=== PATIENT | female | born 1975 | race Caucasian/White ===

== ENCOUNTER 2022-12-12 17:12 | Inpatient (IN) | payer OTHER ==
[2022-12-12 17:36] VITALS: BMI 38.6
[2022-12-12] MEDS ORDERED: MAG HYDROX/AL HYDROX/SIMETH 30 ML UNIT-DOSE CUP PO PRN (18:23)
[2022-12-12] MEDS ORDERED: LOPERAMIDE HCL 2 MG CAPSULE PO PRN (18:23)
[2022-12-12] MEDS ORDERED: MAGNESIUM HYDROX 2400MG/30ML ORAL SUSPENSION 30 ML CUP PO PRN (18:23)
[2022-12-12] MEDS ORDERED: IBUPROFEN 400 MG TABLET (FP) PO PRN (18:23)
[2022-12-12] MEDS ORDERED: POLYETHYLENE GLYCOL (HEALTHYLAX) 3350 17 GM PACKET PO PRN (18:23)
[2022-12-12] MEDS ORDERED: methaDONE HCL 10 MG TABLET (FOR DETOX USE ONLY) PO ONE (18:23)
[2022-12-12] MEDS ORDERED: BISMUTH SUBSALICYLATE 524 MG/30 ML PO PRN (18:23)
[2022-12-12] MEDS ORDERED: BENZOCAINE/MENTHOL (CHLORASEPTIC ) LOZENGE MM PRN (18:23)
[2022-12-12] MEDS ORDERED: DICYCLOMINE HCL 10 MG CAPSULE PO PRN (18:23)
[2022-12-12] MEDS ORDERED: NALOXONE HCL (KLOXXADO) 8 MG SPRAY NS PRN (18:23)
[2022-12-12] MEDS ORDERED: ACETAMINOPHEN 325 MG TABLET (FP) PO PRN ×2 (18:23)
[2022-12-12] MEDS ORDERED: diazePAM 5 MG TABLET ONE (18:58)
[2022-12-12] MEDS ORDERED: methaDONE HCL 10 MG TABLET (FOR DETOX USE ONLY) ONE (18:59)
[2022-12-12] MEDS: diazePAM 5 MG TABLET PO PRN ×2 (19:07→22:26)
[2022-12-12] MEDS: THIAMINE HCL 100 MG TABLET (FP) PO SCH (22:25)
[2022-12-12] MEDS: MELATONIN 5 MG TABLETS PO SCH (22:26)
[2022-12-12] MEDS: NICOTINE 10 MG CARTRIDGE (INHALER) IH PRN (22:27)
[2022-12-12] MEDS: METHOCARBAMOL 500 MG TABLET PO PRN (22:27)
[2022-12-12] MEDS: CEPHALEXIN MONOHYDRATE 500 MG CAPSULE (UD) PO SCH (23:27)
[2022-12-13] MEDS: CEPHALEXIN MONOHYDRATE 500 MG CAPSULE (UD) PO SCH ×4 (05:53→23:50)
[2022-12-13] MEDS: diazePAM 5 MG TABLET PO PRN ×4 (05:54→17:40)
[2022-12-13] MEDS: IBUPROFEN 600 MG TABLET (FP) PO PRN (06:47)
[2022-12-13] MEDS: NICOTINE 10 MG CARTRIDGE (INHALER) IH PRN ×2 (06:48→17:38)
[2022-12-13] MEDS: METHOCARBAMOL 500 MG TABLET PO PRN (09:43)
[2022-12-13] MEDS: PRENATAL VITAMINS W/ FOLIC ACID TABLET (FP) PO SCH (09:43)
[2022-12-13] MEDS: FLUoxetine HCL 20 MG CAPSULE PO SCH (11:51)
[2022-12-13 12:02] LABS: CALCIUM 9.6 mg/dL (8.5-10.1); HEMATOCRIT 38.9 % (32.4-45.2); HEMOGLOBIN 12.5 GM/dL (10.7-15.3); MCH 25.4 pg (25.7-33.7); MCHC 32.1 g/dl (32.0-36.0); MEAN CELL VOLUME 79.3 fl (80-96); MEAN PLT VOLUME 7.5 fl (7.5-11.1); PLATELET COUNT 308 10^3/uL (134-434); RBC 4.91 M/mm3 (3.60-5.2); RDW 16.6 % (11.6-15.6); WHITE BLOOD COUNT 8.8 K/mm3 (4.0-10.0)
[2022-12-13 12:03] LABS: ALBUMIN 3.7 g/dl (3.4-5.0); BLOOD UREA NITROGEN 7.5 mg/dL (7-18)
[2022-12-13 12:06] LABS: CREATININE 0.9 mg/dL (0.55-1.3)
[2022-12-13 12:07] LABS: BILIRUBIN,TOTAL 0.3 mg/dL (0.2-1); TOT PROT 7.8 g/dl (6.4-8.2)
[2022-12-13] MEDS: LITHIUM CARBONATE 300 MG CAPSULE PO SCH ×2 (13:03→21:03)
[2022-12-13] MEDS: QUEtiapine FUMARATE 50 MG TABLET PO SCH (21:03)
[2022-12-13] MEDS: OLANZapine 10 MG TABLET PO SCH (21:03)
[2022-12-13] MEDS: THIAMINE HCL 100 MG TABLET (FP) PO SCH (21:04)
[2022-12-13] MEDS: MELATONIN 5 MG TABLETS PO SCH (21:04)
[2022-12-14] MEDS: CEPHALEXIN MONOHYDRATE 500 MG CAPSULE (UD) PO SCH ×4 (05:42→23:04)
[2022-12-14] MEDS: LITHIUM CARBONATE 300 MG CAPSULE PO SCH ×3 (05:42→22:03)
[2022-12-14] MEDS ORDERED: methaDONE HCL 10 MG TABLET (FOR DETOX USE ONLY) PO ONE (10:00)
[2022-12-14] MEDS: FLUoxetine HCL 20 MG CAPSULE PO SCH (10:06)
[2022-12-14] MEDS: METHOCARBAMOL 500 MG TABLET PO PRN ×2 (10:06→17:46)
[2022-12-14] MEDS: PRENATAL VITAMINS W/ FOLIC ACID TABLET (FP) PO SCH (10:06)
[2022-12-14] MEDS: diazePAM 5 MG TABLET PO PRN ×3 (10:10→23:04)
[2022-12-14] MEDS: NICOTINE 10 MG CARTRIDGE (INHALER) IH PRN (19:24)
[2022-12-14] MEDS: OLANZapine 10 MG TABLET PO SCH (22:03)
[2022-12-14] MEDS: THIAMINE HCL 100 MG TABLET (FP) PO SCH (22:03)
[2022-12-14] MEDS: QUEtiapine FUMARATE 50 MG TABLET PO SCH (22:03)
[2022-12-14] MEDS: MELATONIN 5 MG TABLETS PO SCH (22:04)
[2022-12-15] MEDS: LITHIUM CARBONATE 300 MG CAPSULE PO SCH ×3 (05:29→22:19)
[2022-12-15] MEDS: CEPHALEXIN MONOHYDRATE 500 MG CAPSULE (UD) PO SCH ×4 (05:29→23:05)
[2022-12-15] MEDS: diazePAM 5 MG TABLET PO PRN ×3 (05:30→17:38)
[2022-12-15] MEDS: METHOCARBAMOL 500 MG TABLET PO PRN ×2 (08:42→23:08)
[2022-12-15] MEDS: PRENATAL VITAMINS W/ FOLIC ACID TABLET (FP) PO SCH (10:07)
[2022-12-15] MEDS: FLUoxetine HCL 20 MG CAPSULE PO SCH (10:07)
[2022-12-15] MEDS ORDERED: BUPRENORPHINE HCL 75 MCG FILM BC ONE (10:54)
[2022-12-15] MEDS: amLODIPine BESYLATE 10 MG TABLET (FP) PO SCH (10:56)
[2022-12-15] MEDS: IBUPROFEN 600 MG TABLET (FP) PO PRN (12:25)
[2022-12-15] MEDS: NICOTINE 10 MG CARTRIDGE (INHALER) IH PRN ×2 (12:30→17:40)
[2022-12-15] MEDS ORDERED: BUPRENORPHINE HCL 75 MCG FILM BC SCH (22:00)
[2022-12-15] MEDS: OLANZapine 10 MG TABLET PO SCH (22:11)
[2022-12-15] MEDS: THIAMINE HCL 100 MG TABLET (FP) PO SCH (22:11)
[2022-12-15] MEDS: QUEtiapine FUMARATE 50 MG TABLET PO SCH (22:11)
[2022-12-15] MEDS: MELATONIN 5 MG TABLETS PO SCH (22:17)
[2022-12-16] MEDS: CEPHALEXIN MONOHYDRATE 500 MG CAPSULE (UD) PO SCH ×4 (05:59→22:59)
[2022-12-16] MEDS: LITHIUM CARBONATE 300 MG CAPSULE PO SCH ×3 (05:59→22:18)
[2022-12-16] MEDS ORDERED: methaDONE HCL 10 MG TABLET (FOR DETOX USE ONLY) PO ONE (10:00)
[2022-12-16] MEDS: METHOCARBAMOL 500 MG TABLET PO PRN ×3 (10:13→23:02)
[2022-12-16] MEDS: PRENATAL VITAMINS W/ FOLIC ACID TABLET (FP) PO SCH (10:13)
[2022-12-16] MEDS: BUPRENORPHINE HCL 450 MCG FILM BC SCH ×2 (10:13→22:19)
[2022-12-16] MEDS: FLUoxetine HCL 20 MG CAPSULE PO SCH (10:13)
[2022-12-16] MEDS: amLODIPine BESYLATE 10 MG TABLET (FP) PO SCH (10:13)
[2022-12-16] MEDS: NICOTINE 10 MG CARTRIDGE (INHALER) IH PRN ×2 (10:17→22:59)
[2022-12-16] MEDS ORDERED: diazePAM 5 MG TABLET PO ONE (10:48)
[2022-12-16] MEDS ORDERED: NICOTINE POLACRILEX 4 MG GUM BUC PRN (13:45)
[2022-12-16] MEDS: MELATONIN 5 MG TABLETS PO SCH (22:17)
[2022-12-16] MEDS: THIAMINE HCL 100 MG TABLET (FP) PO SCH (22:17)
[2022-12-16] MEDS: OLANZapine 10 MG TABLET PO SCH (22:17)
[2022-12-16] MEDS: QUEtiapine FUMARATE 50 MG TABLET PO SCH (22:17)
[2022-12-17] MEDS: CEPHALEXIN MONOHYDRATE 500 MG CAPSULE (UD) PO SCH ×3 (05:19→17:45)
[2022-12-17] MEDS: LITHIUM CARBONATE 300 MG CAPSULE PO SCH ×3 (05:19→21:41)
[2022-12-17] MEDS ORDERED: BUPRENORPHINE/NALOXONE 4 MG/1 MG FILM PACKET SL SCH (06:00)
[2022-12-17] MEDS ORDERED: BUPRENORPHINE/NALOXONE 4 MG/1 MG FILM PACKET SL ONE ×2 (09:15→18:00)
[2022-12-17] MEDS: PRENATAL VITAMINS W/ FOLIC ACID TABLET (FP) PO SCH (09:37)
[2022-12-17] MEDS: amLODIPine BESYLATE 10 MG TABLET (FP) PO SCH (09:38)
[2022-12-17] MEDS: METHOCARBAMOL 500 MG TABLET PO PRN ×2 (09:38→17:45)
[2022-12-17] MEDS: FLUoxetine HCL 20 MG CAPSULE PO SCH (09:38)
[2022-12-17] MEDS ORDERED: diazePAM 5 MG TABLET PO ONE (11:35)
[2022-12-17] MEDS ORDERED: ONDANSETRON *ODT* 4 MG TABLET SL PRN (11:48)
[2022-12-17] MEDS ORDERED: TRIMETHOBENZAMIDE HCL 200MG/2ML INJ IM PRN (11:48)
[2022-12-17] MEDS: cloNIDine HCL 0.1 MG TABLET PO PRN ×2 (12:37→17:45)
[2022-12-17 12:59] VITALS: RESP 18
[2022-12-17] MEDS: IBUPROFEN 600 MG TABLET (FP) PO PRN (13:40)
[2022-12-17] MEDS: hydrOXYzine PAMOATE 25 MG CAPSULE (FP) PO PRN (19:58)
[2022-12-17] MEDS: QUEtiapine FUMARATE 50 MG TABLET PO SCH (21:39)
[2022-12-17] MEDS: MELATONIN 5 MG TABLETS PO SCH (21:39)
[2022-12-17] MEDS: OLANZapine 10 MG TABLET PO SCH (21:40)
[2022-12-17] MEDS: THIAMINE HCL 100 MG TABLET (FP) PO SCH (21:41)
[2022-12-18] MEDS: CEPHALEXIN MONOHYDRATE 500 MG CAPSULE (UD) PO SCH ×3 (00:26→11:40)
[2022-12-18] MEDS: cloNIDine HCL 0.1 MG TABLET PO PRN (05:32)
[2022-12-18] MEDS: LITHIUM CARBONATE 300 MG CAPSULE PO SCH (05:32)
[2022-12-18] MEDS: IBUPROFEN 600 MG TABLET (FP) PO PRN (06:16)
[2022-12-18] MEDS ORDERED: BUPRENORPHINE/NALOXONE 8 MG/2 MG FILM PACKET SL ONE (06:24)
[2022-12-18 09:40] VITALS: BP 131/72; PULSE 73; TEMP 97.5
[2022-12-18] MEDS: FLUoxetine HCL 20 MG CAPSULE PO SCH (10:05)
[2022-12-18] MEDS: amLODIPine BESYLATE 10 MG TABLET (FP) PO SCH (10:05)
[2022-12-18] MEDS: METHOCARBAMOL 500 MG TABLET PO PRN (10:05)
[2022-12-18] MEDS: hydrOXYzine PAMOATE 25 MG CAPSULE (FP) PO PRN (10:05)
[2022-12-18] MEDS: PRENATAL VITAMINS W/ FOLIC ACID TABLET (FP) PO SCH (10:05)
[2022-12-18] MEDS: NICOTINE 10 MG CARTRIDGE (INHALER) IH PRN (10:35)
== END 2022-12-18 12:16 | disposition other institution (70) | DRG 773 ==
LOC: YASAS 17:12 → Y6N 18:47
PROVIDERS: ADMIT Allergy & Immunology; ATTEND Family Medicine
PROC: HZ2ZZZZ Detoxification Services for Substance Abuse Treatment (ICD-10-PCS; principal; 2022-12-12)
DX: F11.23 Opioid dependence with withdrawal (principal); F17.210 Nicotine dependence, cigarettes, uncomplicated; F25.0 Schizoaffective disorder, bipolar type; F60.9 Personality disorder, unspecified; F41.9 Anxiety disorder, unspecified; F32.A Depression, unspecified; I10 Essential (primary) hypertension; M54.50 Low back pain, unspecified; G89.29 Other chronic pain; Z62.810 Personal history of physical and sexual abuse in childhood; Z88.8 Allergy status to other drugs, medicaments and biological substances
CPT/HCPCS: 36415; 80053; 80178; 81025; 85027; 86780; 93005; 93010; C9803-CS; U0003; U0005

== ENCOUNTER 2022-12-18 12:20 | Inpatient (IN) | payer OTHER ==
[2022-12-18] MEDS ORDERED: guaiFENesin 200 MG/10 ML 10 ML UNIT-DOSE CUPS PO PRN (12:44)
[2022-12-18] MEDS ORDERED: LOPERAMIDE HCL 2 MG CAPSULE PO PRN (12:44)
[2022-12-18] MEDS ORDERED: MAGNESIUM HYDROX 2400MG/30ML ORAL SUSPENSION 30 ML CUP PO PRN (12:44)
[2022-12-18] MEDS ORDERED: MAG HYDROX/AL HYDROX/SIMETH 30 ML UNIT-DOSE CUP PO PRN (12:44)
[2022-12-18] MEDS ORDERED: BENZOCAINE/MENTHOL (CHLORASEPTIC ) LOZENGE MM PRN (12:44)
[2022-12-18] MEDS ORDERED: POLYETHYLENE GLYCOL (HEALTHYLAX) 3350 17 GM PACKET PO PRN (12:44)
[2022-12-18] MEDS ORDERED: NICOTINE 10 MG CARTRIDGE (INHALER) IH PRN (12:44)
[2022-12-18] MEDS ORDERED: ACETAMINOPHEN 325 MG TABLET (FP) PO PRN (12:44)
[2022-12-18] MEDS ORDERED: NICOTINE 21 MG/24 HOURS TOPICAL PATCH TD PRN (13:17)
[2022-12-18] MEDS ORDERED: NICOTINE POLACRILEX 4 MG GUM BUC PRN (13:17)
[2022-12-18] MEDS: IBUPROFEN 400 MG TABLET (FP) PO PRN (14:05)
[2022-12-18] MEDS: CEPHALEXIN MONOHYDRATE 500 MG CAPSULE (UD) PO SCH ×2 (14:05→21:17)
[2022-12-18] MEDS: LITHIUM CARBONATE 300 MG CAPSULE PO SCH ×2 (14:57→21:17)
[2022-12-18] MEDS: THIAMINE HCL 100 MG TABLET (FP) PO SCH (21:17)
[2022-12-18] MEDS: QUEtiapine FUMARATE 50 MG TABLET PO SCH (21:17)
[2022-12-18] MEDS: OLANZapine 10 MG TABLET PO SCH (21:17)
[2022-12-18] MEDS: MELATONIN 5 MG TABLETS PO SCH (21:17)
[2022-12-18] MEDS: hydrOXYzine PAMOATE 25 MG CAPSULE (FP) PO PRN (22:33)
[2022-12-18 23:16] VITALS: RESP 18
[2022-12-19] MEDS: CEPHALEXIN MONOHYDRATE 500 MG CAPSULE (UD) PO SCH ×4 (03:00→21:20)
[2022-12-19] MEDS: LITHIUM CARBONATE 300 MG CAPSULE PO SCH ×3 (06:41→21:20)
[2022-12-19] MEDS: hydrOXYzine PAMOATE 25 MG CAPSULE (FP) PO PRN ×2 (08:12→13:22)
[2022-12-19] MEDS ORDERED: BUPRENORPHINE/NALOXONE 2 MG/0.5 MG FILM PACKET SL ONE ×2 (08:29→14:22)
[2022-12-19] MEDS ORDERED: TRIMETHOBENZAMIDE HCL 200MG/2ML INJ IM ONE (08:30)
[2022-12-19] MEDS ORDERED: ONDANSETRON *ODT* 4 MG TABLET SL PRN (08:40)
[2022-12-19] MEDS ORDERED: hydrOXYzine PAMOATE 25 MG CAPSULE (FP) PO ONE (09:16)
[2022-12-19] MEDS: amLODIPine BESYLATE 10 MG TABLET (FP) PO SCH (09:38)
[2022-12-19] MEDS: FLUoxetine HCL 20 MG CAPSULE PO SCH (09:38)
[2022-12-19] MEDS: PRENATAL VITAMINS W/ FOLIC ACID TABLET (FP) PO SCH (09:39)
[2022-12-19] MEDS: METHOCARBAMOL 500 MG TABLET PO PRN (09:39)
[2022-12-19] MEDS: IBUPROFEN 400 MG TABLET (FP) PO PRN (09:39)
[2022-12-19] MEDS ORDERED: OLANZapine 10 MG TABLET PO SCH (10:00)
[2022-12-19] MEDS ORDERED: hydrOXYzine PAMOATE 25 MG CAPSULE (FP) PO PRN (10:00)
[2022-12-19] MEDS: cloNIDine HCL 0.1 MG TABLET PO PRN (16:55)
[2022-12-19] MEDS: MELATONIN 5 MG TABLETS PO SCH (21:20)
[2022-12-19] MEDS: OLANZapine 10 MG TABLET PO SCH (21:20)
[2022-12-19] MEDS: THIAMINE HCL 100 MG TABLET (FP) PO SCH (21:20)
[2022-12-19] MEDS: QUEtiapine FUMARATE 50 MG TABLET PO SCH (21:20)
[2022-12-19] MEDS: BUPRENORPHINE/NALOXONE 2 MG/0.5 MG FILM PACKET SL SCH (21:20)
[2022-12-20] MEDS: CEPHALEXIN MONOHYDRATE 500 MG CAPSULE (UD) PO SCH ×3 (03:53→13:36)
[2022-12-20] MEDS: LITHIUM CARBONATE 300 MG CAPSULE PO SCH ×2 (06:57→13:36)
[2022-12-20] MEDS: cloNIDine HCL 0.1 MG TABLET PO PRN (06:57)
[2022-12-20] MEDS: IBUPROFEN 400 MG TABLET (FP) PO PRN (06:57)
[2022-12-20 07:55] VITALS: TEMP 97.7
[2022-12-20] MEDS: PRENATAL VITAMINS W/ FOLIC ACID TABLET (FP) PO SCH (09:45)
[2022-12-20] MEDS: BUPRENORPHINE/NALOXONE 2 MG/0.5 MG FILM PACKET SL SCH (09:45)
[2022-12-20] MEDS: amLODIPine BESYLATE 10 MG TABLET (FP) PO SCH (09:45)
[2022-12-20] MEDS: FLUoxetine HCL 20 MG CAPSULE PO SCH (09:45)
[2022-12-20] MEDS: hydrOXYzine PAMOATE 25 MG CAPSULE (FP) PO PRN (09:54)
[2022-12-20] MEDS ORDERED: cloNIDine HCL 0.1 MG TABLET PO PRN (12:26)
[2022-12-20 13:00] VITALS: BP 154/84; PULSE 84
[2022-12-20] MEDS: METHOCARBAMOL 500 MG TABLET PO PRN (13:36)
== END 2022-12-20 18:56 | disposition left against medical advice (07) | DRG 770 ==
LOC: YASAS 12:20 → Y5N 12:23
PROVIDERS: ADMIT Allergy & Immunology; ATTEND Psychiatry & Neurology Pain Medicine
PROC: HZ42ZZZ Group Counseling for Substance Abuse Treatment, Cognitive-Behavioral (ICD-10-PCS; principal; 2022-12-18)
DX: F11.20 Opioid dependence, uncomplicated (principal); F17.210 Nicotine dependence, cigarettes, uncomplicated; F20.9 Schizophrenia, unspecified; F41.9 Anxiety disorder, unspecified; I10 Essential (primary) hypertension; Z88.8 Allergy status to other drugs, medicaments and biological substances
CPT/HCPCS: 36415; 80178; 86803; 87522; Q0162